=== PATIENT | female | born 1960 | race African-American/Black ===

== ENCOUNTER 2017-06-18 06:47 | Emergency (ER) | payer OTHER, MEDICAID ==
[~2017-06-18] VITALS: Ht 170.2 cm; Wt 66.0 kg
[~2017-06-18 06:47] MED LIST: HYDR12.529 PO
[2017-06-18] MEDS ORDERED: ACETAMINOPHEN 325MG TABLET PO STA (07:38)
[2017-06-18 08:00] LABS: BASOPHILS % 1.2 % (0.0-2.0); HEMATOCRIT. 46.8 % (36.0-48.0); HEMOGLOBIN. 16.2 g/dL (12.0-16.0); LYMPHOCYTES % 29.4 % (20.0-50.0); MEAN CORPUSCULAR HEMOGLOBIN 31.9 pg (28.0-32.0); MEAN CORPUSCULAR VOLUME 92.3 fL (81.0-99.0); MEAN PLATELET VOLUME 9.2 fl (7.4-10.4); MONOCYTES % 11.1 % (2.0-8.0); NEUTROPHILS % 56.3 % (40.0-76.0); PLATELET 244 x1000/uL (130-400); RED BLOOD CELL COUNT 5.07 mill/uL (4.2-5.4); RED CELL DISTRIBUTION WIDTH 13.7 % (11.6-14.6)
[2017-06-18 08:07] LABS: CHLORIDE 102 mEq/L (98-107); INR 1.1; PROTHROMBIN TIME 11.3 sec (9.4-11.6)
[2017-06-18 09:15] VITALS: BP 110/90
[2017-06-18] MEDS ORDERED: KETOROLAC 30MG/ML VIAL IM ONE (10:15)
[2017-06-18 10:19] LABS: CLARITY URINE CLEAR (CLEAR); COLOR URINE DARK YELLOW (YELLOW); KETONES URINE TRACE (NEGATIVE); LEUKOCYTE ESTERASE URINE NEGATIVE (NEGATIVE); NITRITE URINE NEGATIVE (NEGATIVE); OCCULT BLOOD URINE NEGATIVE (NEGATIVE); PROTEIN URINE NEGATIVE (NEGATIVE); SPECIFIC GRAVITY URINE 1.034 (1.005-1.030)
== END 2017-06-18 11:15 | disposition home or self-care (01) ==
LOC: ER 06:47
DX: R10.30 Lower abdominal pain, unspecified (principal); R53.1 Weakness; F17.200 Nicotine dependence, unspecified, uncomplicated; R42 Dizziness and giddiness
CPT/HCPCS: 36415; 71045; 74176; 80053; 81003; 83690; 84484; 85025; 85610; 93005; 96372; 99285; J1885

== ENCOUNTER 2021-03-30 23:47 | Emergency (ER) | payer BC, MEDICAID ==
[~2021-03-30] VITALS: Ht 167.6 cm; Wt 61.4 kg
[2021-03-31 00:21] VITALS: BP 121/88
[2021-03-31] MEDS ORDERED: KETOROLAC 15MG/ML VIAL IM ONE (00:45)
[2021-04-01] MEDS ORDERED: IBUP-2029 MT (10:20)
[2021-04-01] MEDS ORDERED: POTA-9 MT (10:20)
[2021-04-01] MEDS ORDERED: ONDA4TAB5 MT (10:20)
== END 2021-03-31 01:40 | disposition home or self-care (01) ==
LOC: ER 23:47
DX: U07.1 COVID-19 (principal); M79.10 Myalgia, unspecified site; I10 Essential (primary) hypertension; Z90.710 Acquired absence of both cervix and uterus; Z89.9 Acquired absence of limb, unspecified
CPT/HCPCS: 96372; 99283; J1885

== ENCOUNTER 2021-04-01 06:56 | Emergency (ER) | payer BC, MEDICAID ==
[~2021-04-01] VITALS: Ht 167.6 cm; Wt 59.0 kg
[2021-04-01 07:55] LABS: BASOPHILS % 0.5 % (0.0-2.0); EOSINOPHILS % 0.4 % (0.0-5.0); HEMATOCRIT. 45.8 % (36.0-48.0); HEMOGLOBIN. 15.7 g/dL (12.0-16.0); LYMPHOCYTES % 10.6 % (20.0-50.0); MEAN CORPUSCULAR HEMOGLOBIN 31.2 pg (28.0-32.0); MEAN CORPUSCULAR VOLUME 90.8 fL (81.0-99.0); MEAN PLATELET VOLUME 9.1 fl (7.4-10.4); MONOCYTES % 11.8 % (2.0-8.0); NEUTROPHILS % 76.7 % (40.0-76.0); PLATELET 277 x1000/uL (130-400); RED BLOOD CELL COUNT 5.05 mill/uL (4.2-5.4); RED CELL DISTRIBUTION WIDTH 12.9 % (11.6-14.6)
[2021-04-01 09:40] LABS: CHLORIDE 94 mEq/L (98-107)
[2021-04-01] MEDS ORDERED: POTASSIUM CHLORIDE 20MEQ TABLET SR PO ONE (10:00)
[2021-04-01] MEDS ORDERED: ONDA4TAB5 MT (10:20)
[2021-04-01] MEDS ORDERED: IBUP-2029 MT (10:20)
[2021-04-01] MEDS ORDERED: POTA-9 MT (10:20)
[2021-04-01 10:47] VITALS: BP 132/72
== END 2021-04-01 10:48 | disposition home or self-care (01) ==
LOC: ER 06:56
DX: U07.1 COVID-19 (principal); E87.6 Hypokalemia; I10 Essential (primary) hypertension; Z98.890 Other specified postprocedural states
CPT/HCPCS: 36415; 71045; 80053; 85025; 87804; 99284